=== PATIENT | female | born 1940 | race Caucasian/White ===

== ENCOUNTER 2025-03-11 03:57 | Inpatient (IN) | payer OTHER ==
[~2025-03-11] VITALS: Ht 157.5 cm; Wt 55.1 kg
[2025-03-11] VITALS (7 sets, daily range): BP systolic 136–141; BP diastolic 69–70; PULSE 74–100; RESP 16–20; TEMP 98.4–100.2; O2SAT 92–100
[2025-03-11 05:30] LABS: Basophils # (auto) 0 10 ^3/uL (0-0.2); Basophils % (auto) 0.6 % (0.0-2.0); Eosinophils # (auto) 0 10 ^3/uL (0-0.8); Eosinophils % (auto) 0.4 % (0.0-7.0); Hematocrit 38.7 % (36.0-46.0); Lymphocytes # (auto) 0.9 10 ^3/uL (0.4-5.4); Lymphocytes % (auto) 11.1 % (10.0-50.0); Mean Corpuscular Hemoglobin 32.9 pg (28.0-32.0); Mean Corpuscular Hgb Conc. 33.5 g/dL (32.0-36.0); Monocytes # (auto) 0.9 10 ^3/uL (0-1.3); Monocytes % (auto) 11.2 % (0.0-12.0); Neutrophils # (auto) 6.2 10 ^3/uL (1.6-8.6); Neutrophils % (auto) 76.7 % (37.0-80.0); Platelet Count (auto) 224 10^3/uL (140-450); Red Blood Cells 3.95 10^6/uL (4.0-5.20)
[2025-03-11 05:44] LABS: Chloride 105 mmol/L (98-107); Potassium 4.2 mmol/L (3.5-5.1); Sodium 137 mmol/L (136-145)
[2025-03-11 05:45] LABS: Anion Gap 11 (5-15); Carbon Dioxide 21 mmol/L (20-31)
[2025-03-11 05:50] LABS: BUN/Creatinine Ratio 12.2 (10.0-20.0); Blood Urea Nitrogen 15 mg/dL (9-23); Calcium 11.2 mg/dL (8.7-10.4); Glucose 105 mg/dL (74-106)
[2025-03-11] MEDS: ACETAMINOPHEN 325 MG TAB PO ONE (05:54)
--- NOTE | 2025-03-11 06:07 | DVH ---
EXAM: CT HEAD WITHOUT CONTRAST HISTORY: Severe headache COMPARISON: None TECHNIQUE: Noncontrast axial CT images of the head were performed. Sagittal and coronal reformatted i mages were obtained. This CT exam was performed using 1 or more of the following dose reduction techn iques: Automated exposure control, adjustment of the mA and/or kv according to patient size, or the u se of iterative reconstruction techniques. Radiation Dose: CTDI volume is 51.09 mGy. Dose-length product is 818.82 mGy*cm FINDINGS: There is global brain atrophy. No intracranial hemorrhage, mass, midline shift, hydrocephalus, or phil dence of acute large vessel infarct. There is moderate to severe decreased attenuation in the periven tricular and bicerebral white matter. There are atherosclerotic calcifications the cavernous ICAs and terminal vertebral arteries. There is fluid and/or mucosal thickening in the bilateral ethmoid, bila teral sphenoid, and left maxillary sinuses. There is a left aleksandr bullosa. There may be an old left nasal bone fracture. The bilateral mastoid air cells and middle ear spaces are clear. No cranial frac ture or scalp edema. IMPRESSION: 1. Global brain atrophy and chronic ischemic changes without evidence of acute intracranial process. 2. Paranasal sinus disease.
--- NOTE | 2025-03-11 06:29 | ED.PDOC ---
History of Present Illness HPI Comments 84 y/o F, LOYDA presents to the ED for CC of headache. EMS reports, patient is coming from [facility] where she complained of a generalized headache associated with elevated blood pressure x1day. Patient reports, blood pressure to be reading in the 170s despite taking prescription medications. Patient endo rses, associated symptoms of nausea accompanied by x1 episode of emesis. Patient complains of current 6/10 pain. Upon arrival to the ED, patient's blood pressure read at 168/91. Patient denies chest pain, shortness of breath, or diarrhea. No other associated symptoms, modifiers, recent injuries or sick contacts present at this time. Chief Complaint: Headache Time Seen by MD: 06:20 Reviewed Notes: Nurses Notes, Guest Service Manager Notes, Medications, Allergies Allergies: Coded Allergies: NO KNOWN ALLERGIES (Unverified , 03/11/25) Information Source: Patient, Emergency Med Personnel Mode of Arrival: EMS Severity: Moderate Timing: Days Duration: Since onset Prehospital treatment: None Past Medical History PAST MEDICAL HISTORY: CAD Surgical History: Unknown CHIROPRACTIC ASSISTANT History: Unknown Family History Family History: Unknown Social History Smoker: Non-Smoker Alcohol: Denies ETOH Use Drugs: Denies Drug Use Lives In: Assisted Care Constitutional: denies: chills, diaphoresis, fatigue, fever, malaise, sweats, weakness, others EENTM: denies: blurred vision, double vision, ear bleeding, ear discharge, ear drainage, ear pain, ear ringing, eye pain, eye redness, hearing loss, mouth pain, mouth swelling, nasal discharge, nose bleeding, nose congestion, nose pain, photophobia, tearing, throat pain, throat swelling, voice changes, others Respiratory: denies: cough, hemoptysis, orthopnea, SOB at rest, shortness of breath, SOB with excertion, stridor, wheezing, others Cardiovascular: denies: chest pain, dizzy spells, diaphoresis, Dyspnea on exertion, edema, irregular heart beat, left arm pain, lightheadedness, palpitations, PND, syncope, others Gastrointestinal: reports: nausea, vomiting; denies: abdomen distended, abdo georgie pain, blood streaked bowels, constipated, diarrhea, dysphagia, difficulty swallowing, hematemesis, melena, poor appetite, poor fluid intake, rectal bleeding, rectal pain, others Genitourinary: denies: abnormal vagina bleeding, burning, dyspareunia, dysuria, flank pain, frequency, hematuria, incontinence, pain, , vagina discharge, urgency, others Neurological: reports: headache; denies: dizziness, fainting, left sided numbness, left sided weakness, numbness, paresthesia, pre-existing deficit, right sided numbness, right sided weakness, seizure, speech problems, tingling, tremors, weakness, others Musculoskeletal: denies: back pain, gout, joint pain, joint swelling, muscle pain, muscle stiffness, neck pain, others Integumetry: denies: bruises, change in color, change in hair/nails, dryness, laceration, lesions, lumps, rash, wounds, others Allergic/Immunocompromised: denies: Difficulty Healing, Frequent Infections, Hives, Itching, others Hematologic/Lymphatic: denies: anemia, blood clots, easy bleeding, easy bruising, swollen glands, others Endocrine: denies: excessive hunger, excessive sweating, excessive thirst, excessive urination, flushing, intolerance to cold, intolerance to heat, unexplained weight gain, unexplained weight loss, others Psychiatric: denies: anxiety, bipolar disorder, depression, hopeless, panic disorder, schizophrenia, sleepless, suicidal, others All Other Systems: Reviewed and Negative Physical Exam General Appearance: No Apparent Distress, Normal HEENT: Normal ENT Inspection, Pharynx Normal, TMs Normal Neck: Full Range of Motion, Non-Tender, Normal, Normal Inspection Respiratory: Chest Non-Tender, Lungs Clear, No Accessory Muscle Use, No Respiratory Distress, Normal Breath Sounds Cardiovascular: No Edema, No JVD, No Murmur, No Gallop, Normal Peripheral Pulses, Regular Rate/Rhythm Breast Exam: Deferred Gastrointestinal: No Organomegaly, Non Tender, No Pulsatile Mass, Normal Bowel Sounds, Soft Genitalia: Deferred Pelvic: Deferred Rectal: Deferred Extremities: No calf tenderness, Normal capillary refill, Normal inspection, Normal range of motion, Non-tender, No pedal edema Musculoskeletal : Apperance: Normal Neurologic: Alert, software systems engineer II-XII nml as Tested, No Motor Deficits, Normal Affect, Normal Mood, No Sensory Deficits Cerebellar Function: Normal Reflexes: Normal Skin: Dry, Normal Color, Warm Lymphatic: No Adenopathy Was a procedure done? Was a procedure done?: No Differential Dx Considerations may include: UNCONTROLLED HYPERTENSION, GENERALIZED HEADACHE, MIGRAINE, UTI X-Ray, Labs, Meds, VS Vital Signs Date Time Temp Pulse Resp B/P (MAP) Pulse Ox O2 Delivery O2 Flow Rate FiO2 03/11/25 06:49 156/80 03/11/25 04:15 83 03/11/25 04:07 99.8 80 16 184/72 (109) 100 99.8 Lab Test 03/11/25 05:14 Range/Units White Blood Count 8.0 4.4-10.8 10^3/uL Red Blood Count 3.95 L 4.0-5.20 10^6/uL Hemoglobin 13.0 12.2-16.2 g/dL Hematocrit 38.7 36.0-46.0 % Mean Corpuscular Volume 98.0 80.0-100.0 fL Mean Corpuscular Hemoglobin 32.9 H 28.0-32.0 pg Mean Corpuscular Hemoglobin Concent 33.5 32.0-36.0 g/dL Red Cell Distribution Width 13.0 11.8-14.3 % Platelet Count 224 140-450 10^3/uL Mean Platelet Volume 8.1 6.9-10.8 fL Neutrophils (%) (Auto) 76.7 37.0-80.0 % Lymphocytes (%) (Auto) 11.1 10.0-50.0 % Monocytes (%) (Auto) 11.2 0.0-12.0 % Eosinophils (%) (Auto) 0.4 0.0-7.0 % Basophils (%) (Auto) 0.6 0.0-2.0 % Neutrophils # (Auto) 6.2 1.6-8.6 10 ^3/uL Lymphocytes # (Auto) 0.9 0.4-5.4 10 ^3/uL Monocytes # (Auto) 0.9 0-1.3 10 ^3/uL Eosinophils # (Auto) 0 0-0.8 10 ^3/uL Basophils # (Auto) 0 0-0.2 10 ^3/uL Nucleated Red Blood Cells 0.0 % Sodium Level 137 136-145 mmol/L Potassium Level 4.2 3.5-5.1 mmol/L Chloride Level 105 98-107 mmol/L Carbon Dioxide Level 21 20-31 mmol/L Anion Gap 11 5-15 Blood Urea Nitrogen 15 9-23 mg/dL Creatinine 1.23 H 0.550-1.02 mg/dL Glomerular Filtration Rate Calc 44 >90 mL/min BUN/Creatinine Ratio 12.2 10.0-20.0 Serum Glucose 105 74-106 mg/dL Calcium Level 11.2 H 8.7-10.4 mg/dL Current Medications Medications (Trade) Dose Ordered Sig/Mehrdad Route Start Time Stop Time Status Last Admin Hydralazine HCl (Apresoline Injection) 10 mg ONCE ONCE IV 03/11/25 06:30 03/11/25 06:35 DC 03/11/25 06:49 Time of 1ST Reevaluation: 06:50 Reevaluation 1ST: Unchanged Patient Education/Counseling: Diagnosis, Treatment Family Education/Counseling: No Family Present Departure 1 Departure Time of Disposition: 07:34 (Patient presented with hypertension and symptoms concerning for hypertensive emergency. Patient is receiving iv blood pressure medications requiring intensive monitoring. Data: 1. I ordered and reviewed the result of at least 3 labs including a CBC, BMP, and Urinalysis. 2. I independently interpreted the following tests: CT Brain: Which appears benign. EKG which is Normal Sinus RhythmRisk:This patient has a high risk of morbidity due to further diagnostic testing or treatment and may suffer from an acute cardiac disorder. Workup reveals hypertensive emergency and patient should be admitted for further workup. and possible expert consultation. ) Impression: Primary Impression: Hypertensive emergency Additional Impression: Migraine Qualified Codes: G43.109 - Migraine with aura, not intractable, without sta tus migrainosus Disposition: ADMITTED INPATIENT Admit to: Med Surg Condition: Serious Critical Care Note Critical Care Time?: Yes Critical care comment: Hypertensive emergency Authorized and Performed by: Jose Arreaga MD Total critical care time: Approximately 37 minutes Due to a high probability of clinically significant, life threatening deterioration, the patient required my highest level of preparedness to intervene emergently and I personally spent this critical care time directly and personally managing the patient. This critical care time included obtaining a history; examining the patient; pulse oximetry; ordering and review of studies; arranging urgent treatment with development of a management plan; evaluation of patient's response to treatment; frequent reassessment; and, discussions with other providers. This critical care time was performed to assess and manage the high probability of imminent, life-threatening deterioration that could result in multi-organ failure. It was exclusive of separately billable procedures and treating other patients and teaching time. Please see my other sections and the rest of the note for further information on patient assessment and treatment. Stability Stability form required: No Heart Score Heart Score: Heart Score Response (Comments) Value History N/A 0 EKG N/A 0 Age N/A 0 Risk Factors N/A 0 Troponin N/A 0 Total 0 I personally scribed for JOSE ARREAGA MD ([email or web address]) on 03/11/25 at 06:29. Electronically submitted by Paulette Leyva ([email or web address]). JOSE ARREAGA MD March 11, 2025 06:29
[2025-03-11] MEDS: hydrALAZINE HCL 20 MG/ML VL IV ONE (06:49)
--- NOTE | 2025-03-11 06:59 | DVH ---
EXAM: XR Chest, 1 View CLINICAL INDICATION: sob TECHNIQUE: Frontal view of the chest. COMPARISON: None FINDINGS: LUNGS AND PLEURAL SPACES: Unremarkable. No consolidation. No pneumothorax. HEART: Unremarkable. No cardiomegaly. MEDIASTINUM: Unremarkable. Normal mediastinal contour. BONES/JOINTS: Unremarkable. No acute fracture. OTHER FINDINGS: . IMPRESSION: No acute cardiopulmonary process.
[2025-03-11] MEDS ORDERED: ATEN25TA PO (07:51)
[2025-03-11] MEDS ORDERED: BECL80AE11 PO (07:51)
[2025-03-11] MEDS ORDERED: SIMV20TA20 PO (07:51)
[2025-03-11] MEDS ORDERED: LISI10TA34 PO (07:51)
[2025-03-11] MEDS ORDERED: MORPHINE SULFATE INJ 2 MG/ml SYRG IV PRN (08:45)
[2025-03-11] MEDS ORDERED: ONDANSETRON HCL 4 MG/2 ML VIAL IV ONE (08:45)
[2025-03-11] MEDS ORDERED: NITROGLYCERIN 0.4 MG SL TAB SL PRN (08:45)
[2025-03-11] MEDS: ONDANSETRON HCL 4 MG/2 ML VIAL ONE (08:50)
[2025-03-11] MEDS ORDERED: ONDANSETRON HCL 4 MG/2 ML VIAL IV PRN (09:00)
[2025-03-11] MEDS: ONDANSETRON HCL 4 MG/2 ML VIAL IV ONE (09:09)
--- NOTE | 2025-03-11 09:09 | DVHHP2 ---
History of Present Illness Reason for Visit: Headache and nausea and vomiting History of Present Illness 84-year-old female with a history of hypertension, history of bronchiectasis, dyslipidemia, who [facility] was sent here due to high blood pressure nausea and vomiting and headache Her blood pressure on admission here was 184/72 and temperature 99.8� She is still having nausea and vomiting No abdominal pain, no hematemesis She also had diarrhea yesterday The headache is frontal Cardiovascular: HTN Review of Systems Constitutional: Yes: Weakness Gastrointestinal: Nausea, Vomiting, Diarrhea Neurological: Weakness Allergies: Coded Allergies: NO KNOWN ALLERGIES (Unverified , 03/11/25) Medications Current Medications Medications Dose Ordered Sig/Mehrdad Route Start Time Stop Time Status Last Admin Dose Admin Nitroglycerin 0.4 mg Q5MINP PRN SL 03/11/25 08:45 UNV Morphine Sulfate 2 mg Q30M PRN IV 03/11/25 08:45 UNV Exam Vital Signs Vital Signs Date Time Temp Pulse Resp B/P (MAP) Pulse Ox O2 Delivery O2 Flow Rate FiO2 03/11/25 06:49 156/80 03/11/25 04:15 83 03/11/25 04:07 99.8 16 100 99.8 General Appearance: Alert, Oriented X3, Cooperative, moderate distress HEENT: Atraumatic, PERRLA, EOMI, Mucous membr. moist/pink Respiratory: Clear to auscultation, Normal air movement Cardiovascular: Regular rate, Normal S1, Normal S2, No murmurs Abdominal: Normal bowel sounds, Soft, No tenderness, No hepatospenomegaly, No masses Extremities: No clubbing, No cyanosis, No edema Skin: No rashes Neuro: Normal speech Labs/Xrays Labs Test 03/11/25 05:14 Range/Units White Blood Count 8.0 4.4-10.8 10^3/uL Red Blood Count 3.95 L 4.0-5.20 10^6/uL Hemoglobin 13.0 12.2-16.2 g/dL Hematocrit 38.7 36.0-46.0 % Mean Corpuscular Volume 98.0 80.0-100.0 fL Mean Corpuscular Hemoglobin 32.9 H 28.0-32.0 pg Mean Corpuscular Hemoglobin Concent 33.5 32.0-36.0 g/dL Red Cell Distribution Width 13.0 11.8-14.3 % Platelet Count 224 140-450 10^3/uL Mean Platelet Volume 8.1 6.9-10.8 fL Neutrophils (%) (Auto) 76.7 37.0-80.0 % Lymphocytes (%) (Auto) 11.1 10.0-50.0 % Monocytes (%) (Auto) 11.2 0.0-12.0 % Eosinophils (%) (Auto) 0.4 0.0-7.0 % Basophils (%) (Auto) 0.6 0.0-2.0 % Neutrophils # (Auto) 6.2 1.6-8.6 10 ^3/uL Lymphocytes # (Auto) 0.9 0.4-5.4 10 ^3/uL Monocytes # (Auto) 0.9 0-1.3 10 ^3/uL Eosinophils # (Auto) 0 0-0.8 10 ^3/uL Basophils # (Auto) 0 0-0.2 10 ^3/uL Nucleated Red Blood Cells 0.0 % Sodium Level 137 136-145 mmol/L Potassium Level 4.2 3.5-5.1 mmol/L Chloride Level 105 98-107 mmol/L Carbon Dioxide Level 21 20-31 mmol/L Anion Gap 11 5-15 Blood Urea Nitrogen 15 9-23 mg/dL Creatinine 1.23 H 0.550-1.02 mg/dL Glomerular Filtration Rate Calc 44 >90 mL/min BUN/Creatinine Ratio 12.2 10.0-20.0 Serum Glucose 105 74-106 mg/dL Calcium Level 11.2 H 8.7-10.4 mg/dL Assessment/Plan Assessment/Plan Intractable nausea and vomiting Headache Hypertension Acute sinusitis History of bronchiectasis Mixed hyperlipidemia Plan Admit to telemetry Clear liquid diet Start IV Levaquin Start the home medications lisinopril 10 mg daily and atenolol 25 mg daily Hydralazine IV p.r.n. Zofran p.r.n. Protonix IV Tylenol for headache Monitor closely The rest of the management will depend on the hospital course Full code Plan discussed with: Patient My Orders Orders - MARISELA GODINEZ MD Procedure Category Date Status Time Ondansetron Hcl PHA 03/11/25 Logged (Germaine) 09:00 Admit ADMIT 03/11/25 Transmitted 08:32 Nitroglycerin PHA 03/11/25 Logged Sublingual (Ntrostat 08:45 Morphine Sulfate PHA 03/11/25 Logged Injection 08:45 Stat Ekg For Chest BRITTANY 03/11/25 In Process Pain 08:32 Notify Of Changes BRITTANY 03/11/25 In Process From Base 08:32 Hand Assembler For Puller Over For BRITTANY 03/11/25 In Process 24 Hours 08:32 Emergency Dysrhythmia BRITTANY 03/11/25 In Process Protocol 08:32 Rhythm Strips Once BRITTANY 03/11/25 In Process Every Shift 08:32 Oxygen By Nasal RT 03/11/25 Transmitted Cannula 08:32 Ondansetron Hcl PHA 03/11/25 Logged (Zofran) 08:45 Clear Liq Diet DIET 03/11/25 Transmitted Breakfast Ondansetron Hcl PHA 03/11/25 Transmitted (Zofran) 09:00 Pantoprazole PHA 03/11/25 Transmitted (Protonix) 10:00 Levofloxacin Levaquin PHA 03/11/25 Transmitted 10:00 Hydralazine Injection PHA 03/11/25 Verified (Apresoline Inject 09:00 Date of Service: March 11, 2025 Billing Provider: MARISELA GODINEZ MD Common Visit Codes: NOT BILLABLE MARISELA GODINEZ MD March 11, 2025 09:09
--- NOTE | 2025-03-11 12:23 | ECG ---
[facility] Test Date: 2025-03-11 Test Time: 04:15:16 Pat Name: HIRA POP Department: ED Room: 0297T Gender: F Cook Vegetable: kyung : 1940 Requested By: JOSE BOOKER Order Number: [id number] Reading MD: Addy Wiley Measurements Intervals [place] Rate: 83 P: 74 DC: 153 QRS: 63 QRSD: 90 T: 54 QT: 360 QTc: 423 Interpretive Statements Sinus rhythm Left atrial enlargement Electronically Signed On 03-13-2025 21:18:34 PDT by Addy Wiley Please click the below link to view image of tracing.
[2025-03-11] MEDS: LISINOPRIL 5 MG TAB PO SCH (13:28)
[2025-03-11] MEDS: ATENOLOL 25 MG TAB PO SCH (13:34)
[2025-03-11] MEDS: PANTOPRAZOLE 40 MG/10 ML VIAL INJ IV SCH (13:39)
[2025-03-11] MEDS: levoFLOXacin 500MG 100 ML IV SCH (13:54)
[2025-03-11 14:37] LABS: Urine Bacteria None Seen /hpf (None Seen)
[2025-03-11 14:44] LABS: Urine Blood Negative /uL (Negative); Urine Budding Yeast FEW /hpf (None Seen); Urine Clarity Turbid (Clear); Urine Hyaline Cast FEW /lpf (0 - 2); Urine Protein, UAD 1+ (Negative); Urine Specific Gravity 1.014 (1.001-1.035); Urine Squamous Epithelial Cell FEW /hpf (<5); Urine Urobilinogen Normal (Negative); Urine WBC 369 /HPF (0-5); Urine WBC Clumps PRESENT /hpf (None Seen)
[2025-03-11 14:45] LABS: Urine Color STRAW (Yellow)
[2025-03-11] MEDS: ACETAMINOPHEN 325 MG TAB PO PRN (17:53)
[2025-03-11] MEDS: ATORVASTATIN 20 MG TAB PO SCH (21:03)
[2025-03-11] MEDS: BUDESONIDE (INHALATION) 0.5 MG/2 ML NEB NEB SCH (21:42)
[2025-03-12] VITALS (12 sets, daily range): BP systolic 102–154; BP diastolic 41–87; PULSE 74–95; RESP 16–19; TEMP 36.8; O2SAT 92–98
[2025-03-12] MEDS: hydrALAZINE HCL 20 MG/ML VL IV PRN (05:26)
[2025-03-12] MEDS: levoFLOXacin 250MG 50 ML IV SCH (09:43)
[2025-03-12 11:35] LABS: COVID19 ANTIGEN SOFIA FIA NEGATIVE (NEGATIVE); Rapid Influenza A Negative (Negative); Rapid Influenza B Negative (Negative)
[2025-03-12] MEDS ORDERED: LEVO500T91 PO (18:35)
--- NOTE | 2025-03-16 12:42 | DVHDS2 ---
Discharge Summary Date of Admission March 11, 2025 at 08:32 Date of Discharge: March 12, 2025 Labs/Diagnostic Data: Laboratory Results Test 03/12/25 10:35 03/11/25 14:25 03/11/25 05:14 Influenza Type A Antigen Negative (Negative) Influenza Type B Antigen Negative (Negative) SARS-CoV-2 Antigen (Rapid) Negative (NEGATIVE) Urine Color Straw (Yellow) Urine Clarity Turbid (Clear) Urine pH 6.0 (5.0-9.0) Urine Specific [place] 1.014 (1.001-1.035) Urine Protein 1+ (Negative) Urine Ketones 1+ (Negative) Urine Blood Negative /uL (Negative) Urine Nitrite Negative (Negative) Urine Bilirubin Negative (Negative) Urine Urobilinogen Normal mg/dL (Negative) Urine Leukocyte Esterase 3+ /uL (Negative) Urine RBC 4 /hpf (0 - 4) Urine WBC Clumps Present /hpf (None Seen) Urine Microscopic WBC 369 /HPF (0-5) Urine Squamous Epithelial Cells Few /hpf (<5) Urine Bacteria None seen /hpf (None Seen) Urine Hyaline Casts Few /lpf (0 - 2) Urine Yeast (Budding) Few /hpf (None Seen) Urine Glucose Normal mg/dL (Normal) White Blood Count 8.0 10^3/uL (4.4-10.8) Red Blood Count 3.95 10^6/uL (4.0-5.20) Hemoglobin 13.0 g/dL (12.2-16.2) Hematocrit 38.7 % (36.0-46.0) Mean Corpuscular Volume 98.0 fL (80.0-100.0) Mean Corpuscular Hemoglobin 32.9 pg (28.0-32.0) Mean Corpuscular Hemoglobin Concent 33.5 g/dL (32.0-36.0) Red Cell Distribution Width 13.0 % (11.8-14.3) Platelet Count 224 10^3/uL (140-450) Mean Platelet Volume 8.1 fL (6.9-10.8) Neutrophils (%) (Auto) 76.7 % (37.0-80.0) Lymphocytes (%) (Auto) 11.1 % (10.0-50.0) Monocytes (%) (Auto) 11.2 % (0.0-12.0) Eosinophils (%) (Auto) 0.4 % (0.0-7.0) Basophils (%) (Auto) 0.6 % (0.0-2.0) Neutrophils # (Auto) 6.2 10 ^3/uL (1.6-8.6) Lymphocytes # (Auto) 0.9 10 ^3/uL (0.4-5.4) Monocytes # (Auto) 0.9 10 ^3/uL (0-1.3) Eosinophils # (Auto) 0 10 ^3/uL (0-0.8) Basophils # (Auto) 0 10 ^3/uL (0-0.2) Nucleated Red Blood Cells 0.0 % Sodium Level 137 mmol/L (136-145) Potassium Level 4.2 mmol/L (3.5-5.1) Chloride Level 105 mmol/L (98-107) Carbon Dioxide Level 21 mmol/L (20-31) Anion Gap 11 (5-15) Blood Urea Nitrogen 15 mg/dL (9-23) Creatinine 1.23 mg/dL (0.550-1.02) Glomerular Filtration Rate Calc 44 mL/min (>90) BUN/Creatinine Ratio 12.2 (10.0-20.0) Serum Glucose 105 mg/dL (74-106) Calcium Level 11.2 mg/dL (8.7-10.4) Other Laboratory Tests 03/11/25 05:14 Brief Hx & Hospital Course: Discharge diagnoses: Intractable nausea and vomiting Headache Hypertension Acute sinusitis History of bronchiectasis Mixed hyperlipidemia The patient is an 84-year-old female who was admitted to the hospital due to headache and nausea and vomiting nose diagnosed with acute sinusitis She had fever She was given IV antibiotics overnight Overnight she did well and therefore she was discharged home on levofloxacin for 10 days and to follow up with the primary care physician as soon as possible Condition at Discharge: Stable Final Diagnosis/Problems List Acute sinusitis Discharge Disposition: Home SNF Discharge Will this Physician continue t: No Discharge Instruct/Medications Diet: Cardiac 2g Na,low cholest Activity: Light activity Follow Up/Referral: PCP [facility] Medications: Levaquin 500 mg qd x 10 days Discharge Statement: "Patient was advised to return to the ER or call 911 if any headaches, dizziness, shortness of breath, chest pain, abdominal pain, bleeding, fevers, or worsening of medical condition. Patient was counseled about treatment plan, medications, possible side effects, patient�verbalized understanding. All questions were answered to the best of my ability. This discharge took greater then 30 minutes in planning, reviewing documentation, counseling the patient, and discussing with other team members." ASSESSMENT ASSESSMENT Assessment Acute sinusitis Date of Service: March 12, 2025 Billing Provider: MARISELA GODINEZ MD Common Visit Codes: NOT BILLABLE MARISELA GODINEZ MD March 16, 2025 12:42
== END 2025-03-12 20:00 | disposition home or self-care (01) | DRG 305 ==
LOC: EDBD 03:57 → ER 03:57 → OVERFLOW 08:32 → TELE-WESTW 17:35
PROVIDERS: ADMIT Internal Medicine Geriatric Medicine; ATTEND Internal Medicine Geriatric Medicine
DX: I16.0 Hypertensive urgency (principal); J01.90 Acute sinusitis, unspecified; G43.909 Migraine, unspecified, not intractable, without status migrainosus; I10 Essential (primary) hypertension; Z20.822 Contact with and (suspected) exposure to COVID-19; E78.2 Mixed hyperlipidemia; I25.10 Atherosclerotic heart disease of native coronary artery without angina pectoris; Z79.899 Other long term (current) drug therapy
CPT/HCPCS: 36415; 70450; 71045; 80048; 81001; 85025; 87426; 87804; 93005; 94640; 99291; G0378; J1956; J2405; J2470

== ENCOUNTER 2025-09-20 19:59 | Emergency (ER) | payer OTHER ==
[~2025-09-20] VITALS: Ht 157.5 cm; Wt 54.5 kg
[~2025-09-20 19:59] MED LIST: ATEN25TA PO; BECL80AE11 PO; LEVO500T91 PO; LISI10TA34 PO; SIMV20TA20 PO
--- NOTE | 2025-09-20 21:21 | DVH ---
INDICATION: HTN TECHNIQUE: Frontal view of the chest. COMPARISON: XY CHEST PORTABLE on DOS: 03/11/25 FINDINGS/IMPRESSION: The lung apices are partially excluded from field of view. The lungs are clear. The cardiomediastinal silhouette is unremarkable. No pleural effusion or pneumothorax. No acute osseous abnormality. Surgical clips project over the right lower thorax.
[2025-09-20 21:56] LABS: Hematocrit 35.4 % (36.0-46.0); Hemoglobin 12.0 g/dL (12.2-16.2); Mean Corpuscular Hemoglobin 32.9 pg (28.0-32.0); Mean Corpuscular Volume 96.9 fL (80.0-100.0); Nucleated Red Blood Cells % 0.0 %
[2025-09-20 22:03] LABS: Alanine Aminotransferase 19 U/L (7-40); Albumin 4.5 g/dL (3.2-4.8); Alkaline Phosphatase 101 U/L (46-116); Anion Gap 10 (5-15); BUN/Creatinine Ratio 24.3 (10.0-20.0); Bilirubin, Total 0.3 mg/dL (0.2-1.0); Blood Urea Nitrogen 33 mg/dL (9-23); Calcium 10.4 mg/dL (8.7-10.4); Carbon Dioxide 24 mmol/L (20-31); Chloride 104 mmol/L (98-107); Glucose 104 mg/dL (74-106); Potassium 4.5 mmol/L (3.5-5.1); Sodium 138 mmol/L (136-145); Total Protein 7.0 g/dL (5.7-8.2)
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
[2025-09-20 23:34] VITALS: BP 143/78; PULSE 60; RESP 17; TEMP 98.3; O2SAT 95
--- NOTE | 2025-09-23 13:19 | ECG ---
[facility] Test Date: 2025-09-20 Test Time: 21:48:41 Pat Name: HIRA POP Department: ED Room: Gender: F Thrill Performer: : 1940 Requested By: TAVIA CHAPMAN Order Number: [id number] Reading MD: Addy Wiley Measurements Intervals [place] Rate: 65 P: 73 SC: 167 QRS: 54 QRSD: 95 T: 57 QT: 399 QTc: 415 Interpretive Statements Sinus rhythm Left atrial enlargement Baseline wander in lead(s) V6 Electronically Signed On 09-23-2025 17:54:26 PST by Addy Wiley Please click the below link to view image of tracing.
== END 2025-09-20 23:38 | disposition home or self-care (01) ==
LOC: ER 19:59 → EDBD 19:59 → ER 23:34
DX: I16.0 Hypertensive urgency (principal); I25.10 Atherosclerotic heart disease of native coronary artery without angina pectoris; I10 Essential (primary) hypertension; Z79.899 Other long term (current) drug therapy; Z88.0 Allergy status to penicillin; Z79.51 Long term (current) use of inhaled steroids; Z86.79 Personal history of other diseases of the circulatory system
CPT/HCPCS: 36415; 71045; 80053; 84484; 85025; 93005

== ENCOUNTER 2025-09-22 19:13 | Inpatient (IN) | payer OTHER ==
[~2025-09-22] VITALS: Ht 162.6 cm; Wt 55.5 kg
[~2025-09-22 19:13] MED LIST changes: +ACETAMINOPHEN 325 MG TAB PO PRN
--- NOTE | 2025-09-22 19:42 | ED.PDOC ---
Kim. trauma (HPI) HPI Comments This is a 84 year old female TAMRAA presenting to the ED with chief complaint of fall injury. Patient reports that she had accidentally slipped on a ramp, falling down face first. Patient relays that she had hit the right side of her face where it is now bruised and swollen along with injuring her right shoulder trying to break her fall. Patient denies any N/V, LOC, dizziness, headache, neck pain, or back pain. Chief Complaint: Fall Injury Time Seen by MD: 19:38 Reviewed notes: Nurses Notes, Accounts Receivable Collector Notes, Medications, Allergies Allergies: Coded Allergies: Penicillins (Verified Allergy, Unknown, 03/11/25) Home Meds Active Scripts Levofloxacin Hemihydrate (LEVOFLOXACIN) 500 Mg Tab, 1 TAB PO DAILY, #10 TAB Prov:MARISELA GODINEZ MD 03/12/25 Reported Medications Atenolol (Atenolol) 25 Mg Tab, 1 TAB PO DAILY 03/11/25 Simvastatin (Simvastatin) 20 Mg Tab, 1 TAB PO HS 03/11/25 Beclomethasone Dipropionate (Qvar Redihaler) 80 Mcg/Act Aer, 2 PUFF PO BID 03/11/25 Lisinopril (Lisinopril) 10 Mg Tab, 1 TAB PO DAILY 03/11/25 Information Source: Patient, Emergency Med Personnel Mode of Arrival: EMS Severity: Moderate Timing: Hours Duration: Since onset Prehospital treatment: None Location: Face, (R) Shoulder Mechanism: Fall Past Medical History PAST MEDICAL HISTORY: CAD Surgical History: Unknown, Denies all surgeries 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 Family History Family History: Reviewed,noncontributory to illness Social History Smoker: Non-Smoker Alcohol: Denies ETOH Use Drugs: Denies Drug Use Lives In: Assisted Care Constitutional: denies: chills, diaphoresis, fatigue, fever, malaise, sweats, weakness, others EENTM: denies: blurred vision, double vision, ear bleeding, ear discharge, ear drainage, ear pain, ear ringing, eye pain, eye redness, hearing loss, mouth pain, mouth swelling, nasal discharge, nose bleeding, nose congestion, nose pain, photophobia, tearing, throat pain, throat swelling, voice changes, others Respiratory: denies: cough, hemoptysis, orthopnea, SOB at rest, shortness of breath, SOB with excertion, stridor, wheezing, others Cardiovascular: denies: chest pain, dizzy spells, diaphoresis, Dyspnea on exertion, edema, irregular heart beat, left arm pain, lightheadedness, palpitations, PND, syncope, others Gastrointestinal: denies: abdomen distended, abdominal pain, blood streaked bowels, constipated, diarrhea, dysphagia, difficulty swallowing, hematemesis, melena, nausea, poor appetite, poor fluid intake, rectal bleeding, rectal pain, vomiting, others Genitourinary: denies: abnormal vagina bleeding, burning, dyspareunia, dysuria, flank pain, frequency, hematuria, incontinence, pain, , vagina discharge, urgency, others Neurological: denies: dizziness, fainting, headache, left sided numbness, left sided weakness, numbness, paresthesia, pre-existing deficit, right sided numbness, right sided weakness, seizure, speech problems, tingling, tremors, weakness, others Musculoskeletal: reports: others (Rt shoulder pain); denies: back pain, gout, joint pain, joint swelling, muscle pain, muscle stiffness, neck pain Integumetry: reports: bruises (rt cheek and eyebrow); denies: change in color, change in hair/nails, dryness, laceration, lesions, lumps, rash, wounds, others Allergic/Immunocompromised: denies: Difficulty Healing, Frequent Infections, Hives, Itching, others Hematologic/Lymphatic: denies: anemia, blood clots, easy bleeding, easy bruising, swollen glands, others Endocrine: denies: excessive hunger, excessive sweating, excessive thirst, excessive urination, flushing, intolerance to cold, intolerance to heat, unexplained weight gain, unexplained weight loss, others Psychiatric: denies: anxiety, bipolar disorder, depression, hopeless, panic disorder, schizophrenia, sleepless, suicidal, others All Other Systems: Reviewed and Negative Physical Exam General Appearance: No Apparent Distress, Normal HEENT: Normal ENT Inspection, Pharynx Normal, TMs Normal Neck: Full Range of Motion, Non-Tender, Normal, Normal Inspection Respiratory: Chest Non-Tender, Lungs Clear, No Accessory Muscle Use, No Respiratory Distress, Normal Breath Sounds Cardiovascular: No Edema, No JVD, No Murmur, No Gallop, Normal Peripheral Pulses, Regular Rate/Rhythm Breast Exam: Deferred Gastrointestinal: No Organomegaly, Non Tender, No Pulsatile Mass, Normal Bowel Sounds, Soft Genitalia: Deferred Pelvic: Deferred Rectal: Deferred Extremities: No calf tenderness, Normal capillary refill, Normal inspection, Normal range of motion, Non-tender, No pedal edema Musculoskeletal : Location: Right Extremity Location: Shoulder Apperance: Normal, Tenderness (Tenderness over right deltoid with no obvious deformity.) Neurologic: Alert, top trimmer II-XII nml as Tested, No Motor Deficits, Normal Affect, Normal Mood, No Sensory Deficits Cerebellar Function: Normal Reflexes: Normal Skin: Dry, Normal Color, Warm, Other (Hematoma over right cheek and right eyebrow.) Lymphatic: No Adenopathy Was a procedure done? Was a procedure done?: No Differential Diagnosis Multiple Trauma: Fractures, Abrasions, Contusion, Hematoma X-Ray, Labs, Meds, VS Vital Signs Date Time Temp Pulse Resp B/P (MAP) Pulse Ox O2 Delivery O2 Flow Rate FiO2 09/22/25 19:33 97.6 72 19 144/77 100 97.6 [place] [address] Ph: [phone] DIAGNOSTIC IMAGING Diagnostic Imaging Report : [id number] Signed PATIENT: STALIN POPT: [id number] UNIT: [id number] : 1940 LOC: ER ROOM / BED: / AGE / SEX: 84 / F ADM STATUS: REG ER SERVICE 42 ORDERING PHYSICIAN: EZEKIEL GARG PROCEDURE(s): RSHD2 - R SHOULDER 2+ VIEW XRAY REASON: fall ORDER NUMBER(s): [id number], ACCESSION NUMBER(s): [id number] CLINICAL INDICATION: fall TECHNIQUE: 3 radiographic views of the RIGHT SHOULDER were obtained. Comparison: None FINDINGS/IMPRESSION: Fracture of the greater tuberosity of the proximal right humerus No dislocation. ATED BY: NKECHI EVANS Jr., DO DICTATED DATE/TIME: 09/22/252055 SIGNED BY: NKECHI EVANS Jr., SIGNED DATE/TIME: 09/22/252055 CC: X-Ray, Labs, Meds, VS Comment Patient refused head CT Patient has a fracture of the right humeral head Patient states she lives at home alone, there was concerns for either be able to care for herself Orthopedic consult placed Images Reviewed?: Images reviewed and evaluated by me Time of 1ST Reevaluation: 20:38 Reevaluation 1ST: Unchanged Patient Education/Counseling: Diagnosis, Treatment Family Education/Counseling: No Family Present Departure 1 Departure Time of Disposition: 21:07 Impression: Primary Impression: Right humeral fracture Qualified Codes: S42.291A - Other displaced fracture of upper end of right humerus, initial encounter for closed fracture Disposition: ADMITTED INPATIENT Condition: Stable Discharged With: Self Critical Care Note Critical Care Time?: No Stability Stability form required: No Heart Score Heart Score: Heart Score Response (Comments) Value History N/A 0 EKG N/A 0 Age N/A 0 Risk Factors N/A 0 Troponin N/A 0 Total 0 I personally scribed for EZEKIEL GARG ([facility]) on 09/22/25 at 19:42. Electronically submitted by Franky Starr ([email or web address]). I personally scribed for EZEKIEL GARG ([email or web address]) on 09/22/25 at 21:02. Electronically submitted by Franky Starr ([email or web address]). EZEKIEL GARG Sep 22, 2025 19:42
--- NOTE | 2025-09-22 20:58 | DVH ---
CLINICAL INDICATION: fall TECHNIQUE: 3 radiographic views of the RIGHT SHOULDER were obtained. Comparison: None FINDINGS/IMPRESSION: Fracture of the greater tuberosity of the proximal right humerus No dislocation.
[2025-09-22] MEDS: LISINOPRIL 20 MG TAB PO ONE (21:47)
[2025-09-22] MEDS: ACETAMINOPHEN 325 MG TAB PO ONE (21:49)
[2025-09-22] MEDS: ATENOLOL 25 MG TAB PO ONE (21:51)
[2025-09-22] MEDS ORDERED: ONDANSETRON HCL 4 MG/2 ML VIAL IV PRN (22:15)
[2025-09-22] MEDS ORDERED: MORPHINE SULFATE INJ 2 MG/ml SYRG IV PRN (22:15)
[2025-09-22 23:02] LABS: INR 0.98 (0.9-1.15); Partial Thromboplastin Time 27.3 SEC (24.5-34.5); Prothrombin Time 10.4 sec (9.3-11.8)
[2025-09-22 23:10] VITALS: RESP 18; O2SAT 95
[2025-09-23] MEDS: HYDROcodone-ACET 5/325MG TAB PO PRN (02:44)
[2025-09-23 05:37] LABS: Hematocrit 32.5 % (36.0-46.0); Hemoglobin 11.3 g/dL (12.2-16.2); Mean Corpuscular Hemoglobin 33.6 pg (28.0-32.0); Mean Corpuscular Volume 96.6 fL (80.0-100.0); Nucleated Red Blood Cells % 0.1 %
[2025-09-23 05:47] LABS: Chloride 106 mmol/L (98-107); Potassium 4.5 mmol/L (3.5-5.1); Sodium 140 mmol/L (136-145)
[2025-09-23 05:48] LABS: Anion Gap 9 (5-15); Calcium 10.2 mg/dL (8.7-10.4); Carbon Dioxide 25 mmol/L (20-31)
[2025-09-23 05:53] LABS: BUN/Creatinine Ratio 22.1 (10.0-20.0)
[2025-09-23 06:14] LABS: Blood Urea Nitrogen 30 mg/dL (9-23); Glucose 117 mg/dL (74-106)
[2025-09-23 07:25] VITALS: PULSE 51; RESP 15; O2SAT 96
--- NOTE | 2025-09-23 08:18 | DVHINCON2 ---
Consult Note Consult Consult Note Reason for Consult: Right proximal humerus fracture after ground-level fall. History of Present Illness: The patient is a female who presents after a ground-level fall earlier today. She was evaluated in the Emergency Department where X-rays were obtained. On interview, patient reports right shoulder pain with limited ability to move the right upper extremity since the fall. She also has facial ecchymosis, likely from direct impact during the incident. The patient denies loss of consciousness, dizziness, or head injury symptoms. No numbness or tingling in the right arm is reported. Pain is worsened with any attempted motion of the shoulder. Patient is able to move her right UE fingers and Elbow and wrist without difficulty. Physical Examination: General: Alert, oriented, in mild discomfort due to shoulder pain. Head/Face: Facial ecchymosis noted; no lacerations, no active bleeding. No focal neurologic deficits. Right Upper Extremity: Tenderness to palpation over proximal humerus Pain with attempted ROM of shoulder No gross deformity of shoulder Skin intact; no open wounds Motor: Intact distallyfingers, wrist, hand movements intact Sensation: Intact to light touch in all dermatomes Radial pulse 2+, warm and well-perfused No elbow or wrist tenderness Imaging: Right Shoulder X-ray: Proximal humerus fracture involving the greater tuberosity No dislocation No additional fractures identified Assessment: 1. Right proximal humerus fracturegreater tuberosity 2. Facial ecchymosis secondary to fall 3. Ground-level fall 4. Neurovascularly intact right upper extremity Plan: 1. Non-operative management recommended at this time, given fracture pattern and alignment. 2. Shoulder immobilizer placed for comfort and stabilization. 3. Nonweight bearing (NWB) right upper extremity. 4. Ice to right shoulder and face for 2448 hours. 5. Multimodal pain control per ED 6. Follow-up with Orthopedic Clinic in 1 week for repeat X-ray and examination. 7. Return precautions discussed, including severe pain, numbness, tingling, or swelling. 8. All questions answered. 9. Patient agreeable with plan. Plan discussed with: Patient, Other (bedside nurse) Visit Coding Surgery Date of Service if different f: Sep 23, 2025 Billing Provider: SHIVA KLEIN Surgery Visit Codes: 47130 - INP CONSULT <55 MIN SHIVA KLEIN Sep 23, 2025 08:18
[2025-09-23] MEDS: LISINOPRIL 5 MG TAB PO SCH (10:00)
[2025-09-23] MEDS: ATENOLOL 25 MG TAB PO SCH (10:22)
--- NOTE | 2025-09-23 12:57 | DVHPN2 ---
Reviewed: Care Plan, H&P, Labs, Medications, Previous Orders, Radiology Changes from previous H/P or p: No Changes Objective Vitals Vital Signs Date Time Temp Pulse Resp B/P (MAP) Pulse Ox O2 Delivery O2 Flow Rate FiO2 09/23/25 12:00 60 15 172/2 (58) 96 09/23/25 08:50 97.9 97.9 09/23/25 07:25 Room Air* 0 21 Medications Current Medications Medications Dose Ordered Sig/Mehrdad Route Start Time Stop Time Status Last Admin Dose Admin Lisinopril 10 mg DAILY PO 09/23/25 10:00 Atorvastatin Calcium 20 mg HS PO 09/23/25 22:00 Atenolol 25 mg DAILY PO 09/23/25 10:00 09/23/25 10:22 25 MG Acetaminophen/ Hydrocodone Bitart 1 tab Q4HP PRN PO 09/22/25 22:15 09/23/25 02:44 1 TAB Ondansetron HCl 4 mg Q4HP PRN IV 09/22/25 22:15 Acetaminophen 650 mg Q6HP PRN PO 09/22/25 04:00 Morphine Sulfate 2 mg Q6HPRN PRN IV 09/22/25 22:15 Laboratory Results Laboratory Tests 09/23/25 05:14 Chemistry Test 09/23/25 05:14 Calcium Level 10.2 mg/dL (8.7-10.4) Coagulation Test 09/22/25 22:29 Prothrombin Time 10.4 sec (9.3-11.8) Prothrombin Time INR 0.98 (0.9-1.15) Activated Partial Thromboplast Time 27.3 SEC (24.5-34.5) Labs and/or images reviewed: Labs reviewed by me, Image(s) reviewed by me Assessment/Plan Assessment/Plan Fracture right proximal humerus greater tuberosity: Consult by Orthopedic appreciated, shoulder immobilizer pain management Ground level fall Facial ecchymosis secondary to fall Time spent 45 minutes Advanced care time 20 minutes Patient is full code Plan discussed with: Patient Date of Service: Sep 23, 2025 Billing Provider: SALAS FITZPATRICK MD Common Visit Codes: 00313-[id number] INP/OBS CARE(HIGH) Secondary Visit Codes: [id number] CARE PLAN 30 MINUTES SALAS FITZPATRICK MD Sep 23, 2025 12:57
[2025-09-23 13:42] VITALS: PULSE 71; RESP 19; O2SAT 97
[2025-09-23] MEDS ORDERED: ANAS1TAB7 PO (15:42)
[2025-09-23] MEDS ORDERED: PANT1INJ3 IV (15:42)
[2025-09-23 17:00] VITALS: BP 152/77; PULSE 63; RESP 18; TEMP 98.5; O2SAT 96
[2025-09-23 20:00] VITALS: PULSE 76; RESP 18; O2SAT 95
[2025-09-23 21:00] VITALS: BP 114/87; PULSE 76; RESP 18; TEMP 98.1; O2SAT 95
[2025-09-23] MEDS: ATORVASTATIN 20 MG TAB PO SCH (21:58)
[2025-09-24 01:00] VITALS: BP 131/69; PULSE 66; RESP 18; TEMP 98.3; O2SAT 91
[2025-09-24 05:00] VITALS: BP 141/77; PULSE 58; RESP 18; TEMP 97.6; O2SAT 93
[2025-09-24 08:00] VITALS: PULSE 57; RESP 16; O2SAT 92
[2025-09-24 09:03] VITALS: BP 189/88; PULSE 66; RESP 16; TEMP 98.1; O2SAT 97
[2025-09-24] MEDS ORDERED: HYDR-4902 PO (10:05)
--- NOTE | 2025-09-24 10:10 | DVHDS2 ---
Discharge Summary Date of Admission Sep 22, 2025 at 22:01 Date of Discharge: Sep 24, 2025 Labs/Diagnostic Data: Laboratory Results Test 09/23/25 05:14 09/22/25 22:29 White Blood Count 7.6 10^3/uL (4.4-10.8) Red Blood Count 3.36 10^6/uL (4.0-5.20) Hemoglobin 11.3 g/dL (12.2-16.2) Hematocrit 32.5 % (36.0-46.0) Mean Corpuscular Volume 96.6 fL (80.0-100.0) Mean Corpuscular Hemoglobin 33.6 pg (28.0-32.0) Mean Corpuscular Hemoglobin Concent 34.8 g/dL (32.0-36.0) Red Cell Distribution Width 13.7 % (11.8-14.3) Platelet Count 179 10^3/uL (140-450) Mean Platelet Volume 8.9 fL (6.9-10.8) Neutrophils (%) (Auto) 79.0 % (37.0-80.0) Lymphocytes (%) (Auto) 9.7 % (10.0-50.0) Monocytes (%) (Auto) 10.6 % (0.0-12.0) Eosinophils (%) (Auto) 0.3 % (0.0-7.0) Basophils (%) (Auto) 0.4 % (0.0-2.0) Neutrophils # (Auto) 6.0 10 ^3/uL (1.6-8.6) Lymphocytes # (Auto) 0.7 10 ^3/uL (0.4-5.4) Monocytes # (Auto) 0.8 10 ^3/uL (0-1.3) Eosinophils # (Auto) 0 10 ^3/uL (0-0.8) Basophils # (Auto) 0 10 ^3/uL (0-0.2) Nucleated Red Blood Cells 0.1 % Sodium Level 140 mmol/L (136-145) Potassium Level 4.5 mmol/L (3.5-5.1) Chloride Level 106 mmol/L (98-107) Carbon Dioxide Level 25 mmol/L (20-31) Anion Gap 9 (5-15) Blood Urea Nitrogen 30 mg/dL (9-23) Creatinine 1.36 mg/dL (0.550-1.02) Glomerular Filtration Rate Calc 39 mL/min (>90) BUN/Creatinine Ratio 22.1 (10.0-20.0) Serum Glucose 117 mg/dL (74-106) Calcium Level 10.2 mg/dL (8.7-10.4) Prothrombin Time 10.4 sec (9.3-11.8) Prothrombin Time INR 0.98 (0.9-1.15) Activated Partial Thromboplast Time 27.3 SEC (24.5-34.5) Other Laboratory Tests 09/23/25 05:14 Brief Hx & Hospital Course: Final diagnoses: Right arm humerus fracture CKD, stable HTN Mixed hyperlipidemia She fell after she slipped she thinks because she stepped on an olive under an olive tree Ortho saw her, no surgery is needed She can go home F/U with Ortho as outpatient [place] prn Right arm sling Condition at Discharge: Stable Final Diagnosis/Problems List Right humerus fracture Discharge Disposition: Home SNF Discharge Will this Physician continue t: No Discharge Instruct/Medications Diet: Cardiac 2g Na,low cholest Activity: No Restrictions, As Tolerated Follow Up/Referral: [facility]o referral per [facility] Medications: Tylenol OTC prn [place] prn Right arm sling Scheduled Anastrozole (Anastrozole), 1 TAB PO DAILY, (Reported) Atenolol (Atenolol), 1 TAB PO DAILY, (Reported) Beclomethasone Dipropionate (Qvar Redihaler), 2 PUFF PO BID, (Reported) Levofloxacin Hemihydrate (Levofloxacin), 1 TAB PO DAILY Lisinopril (Lisinopril), 1 TAB PO DAILY, (Reported) Simvastatin (Simvastatin), 1 TAB PO HS, (Reported) Scheduled PRN Hydrocodone-Acetaminophen (Hydrocodone Bitartrate/AC 5-325 mg), 1 TAB PO Q6HP PRN Miscellaneous Medications Pantoprazole Sodium (Pantoprazole Sodium), 40 MG IV, (Reported) Discharge Statement: "Patient was advised to return to the ER or call 911 if any headaches, dizziness, shortness of breath, chest pain, abdominal pain, bleeding, fevers, or worsening of medical condition. Patient was counseled about treatment plan, medications, possible side effects, patientverbalized understanding. All questions were answered to the best of my ability. This discharge took greater then 30 minutes in planning, reviewing documentation, counseling the patient, and discussing with other team members." ASSESSMENT ASSESSMENT Assessment Right humerus fracture Date of Service: Sep 24, 2025 Billing Provider: MARISELA GODINEZ MD Common Visit Codes: NOT BILLABLE MARISELA GODINEZ MD Sep 24, 2025 10:10
[2025-09-24 12:35] VITALS: BP 135/74; PULSE 57; RESP 16; TEMP 97.7; O2SAT 92
[2025-09-24 12:45] VITALS: BP 135/74; PULSE 66; RESP 16; TEMP 98.1; O2SAT 97
== END 2025-09-24 14:45 | disposition home or self-care (01) | DRG 563 ==
LOC: ER 19:13 → EDBD 19:13 → OVERFLOW 22:01 → EAST 09-23 12:52
PROVIDERS: ADMIT Internal Medicine Geriatric Medicine; ATTEND Internal Medicine Geriatric Medicine
DX: S42.251A Displaced fracture of greater tuberosity of right humerus, initial encounter for closed fracture (principal); E78.2 Mixed hyperlipidemia; N18.9 Chronic kidney disease, unspecified; I12.9 Hypertensive chronic kidney disease with stage 1 through stage 4 chronic kidney disease, or unspecified chronic kidney disease; I25.10 Atherosclerotic heart disease of native coronary artery without angina pectoris; W01.0XXA Fall on same level from slipping, tripping and stumbling without subsequent striking against object, initial encounter; R23.3 Spontaneous ecchymoses; Y93.89 Activity, other specified; Z88.0 Allergy status to penicillin; Y92.89 Other specified places as the place of occurrence of the external cause; Y99.8 Other external cause status
CPT/HCPCS: 36415; 73030; 80048; 85025; 85610; 85730; 97163; G0378

== ENCOUNTER 2025-09-25 01:45 | Emergency (ER) | payer OTHER ==
[~2025-09-25] VITALS: Ht 157.5 cm; Wt 56.0 kg
[~2025-09-25 01:45] MED LIST changes: -ACETAMINOPHEN 325 MG TAB PO PRN; +ANAS1TAB7 PO; +HYDR-4902 PO; +PANT1INJ3 IV
--- NOTE | 2025-09-25 02:14 | ED.PDOC ---
History of Present Illness HPI Comments 84-year-old female who presents to the ED with a chief complaint of RT shoulder pain onset 2 hours ago. Patient was discharged from [facility] on 09/24/2025 with a diagnosis of Right arm humerus fracture, given a prescription for Gregory, has not taken medication. Patient was trying to get out of bed, slid onto the ground, noticed pain has worsen. Denies head injury, LOC, fever, chills, nausea, vomiting, diarrhea, shortness of breath, numbness/tingling, headache, dizziness. No other symptoms or modifying factors present at this time. PHYSICAL EXAM: General: Awake, alert and oriented. No acute distress. Skin: Skin in warm, dry and intact without rashes or lesions. HEENT: The head is normocephalic and atraumatic. Conjunctivae are clear without exudates or hemorrhage. Sclera is non-icteric. Neck: Normal range of motion. No JVD. Cardiac: Regular rate Respiratory: No signs of respiratory distress. No Stridor. Extremities: upper RT humerus tenderness, normal strength on RT hand. RT face and neck bruising. Neurological: The patient is awake, alert and oriented to person, place, and time with normal speech. Speech is clear. There is no facial asymmetry. Psychiatric: Appropriate mood and affect. Good judgement and insight. REVIEW OF SYSTEMS: General: No fever, no chills, or fatigue HEENT: No sore throat, no earache, no congestion, no neck pain. Cardiac: No chest pain. No palpitations. Lungs: No shortness of breath, no cough. GI: No nausea, no vomiting, no diarrhea, no constipation, no abdominal pain : No dysuria, frequency, or urgency. No hematuria. Musculoskeletal: RT shoulder pain. no extremity edema. Skin: No rash, no itching. Neuro: No headache, no dizziness, no weakness (And as sated in HPI) PHYSICAL EXAM: General: Awake, alert and oriented. No acute distress. Skin: Skin in warm, dry and intact. Appropriate color for ethnicity. HEENT: The head is normocephalic and atraumatic. Conjunctivae are clear without exudates or hemorrhage. Sclera is non-icteric. Eyelids are normal in appearance without swelling or lesions. Oral mucosa is pink and moist Neck: The neck is supple with normal range of motion. No JVD. Cardiac: Heart rate and rhythm are normal. No murmurs, gallops, or rubs are auscultated. Respiratory: No signs of respiratory distress. Lung sounds are clear in all lobes bilaterally without rales, rhonchi, or wheezes. Abdominal: Abdomen is soft, non-tender without distention, guarding or rigidity. Bowel sounds are present and normoactive in all four quadrants. Extremities: Lower extremities without edema. Neurological: The patient is awake, alert and oriented to person, place, and time with normal speech. Speech is clear. There is no facial asymmetry. Psychiatric: Appropriate mood and affect. Good judgement and insight. REVIEW OF SYSTEMS: General: No fever, no chills, or fatigue HEENT: No sore throat, no earache, no congestion, no neck pain. Cardiac: No chest pain. No palpitations. Lungs: No shortness of breath, no cough. GI: No nausea, no vomiting, no diarrhea, no constipation, no abdominal pain : No dysuria, frequency, or urgency. No hematuria. Musculoskeletal: No joint pain , no joint swelling, no extremity edema. Skin: No rash, no itching. Neuro: No headache, no dizziness, no weakness (And as sated in HPI) Chief Complaint: Upper Extremity Time Seen by MD: 02:10 Reviewed Notes: Medications, Allergies Allergies: Coded Allergies: Penicillins (Verified Allergy, Unknown, 03/11/25) Home Meds Active Scripts Hydrocodone-Acetaminophen (Hydrocodone Bitartrate/AC 5-325 mg) 1 Tab Tab, 1 TAB PO Q6HP PRN, #20 TAB Prov:MARISELA GODINEZ MD 09/24/25 Levofloxacin Hemihydrate (LEVOFLOXACIN) 500 Mg Tab, 1 TAB PO DAILY, #10 TAB Prov:MARISELA GODINEZ MD 03/12/25 Reported Medications Anastrozole (Anastrozole) 1 Mg Tab, 1 TAB PO DAILY, #30 TAB 5 Refills 09/23/25 Pantoprazole Sodium (PANTOPRAZOLE SODIUM) 40 Mg Inj, 40 MG IV, INJ 09/23/25 Atenolol (Atenolol) 25 Mg Tab, 1 TAB PO DAILY 03/11/25 Simvastatin (Simvastatin) 20 Mg Tab, 1 TAB PO HS 03/11/25 Beclomethasone Dipropionate (Qvar Redihaler) 80 Mcg/Act Aer, 2 PUFF PO BID 03/11/25 Lisinopril (Lisinopril) 10 Mg Tab, 1 TAB PO DAILY 03/11/25 Information Source: Patient, Significant Other Mode of Arrival: Wheelchair Severity: Moderate Timing: Hours Duration: Since onset Prehospital treatment: None Past Medical History PAST MEDICAL HISTORY: CAD Surgical History: Unknown, Denies all surgeries GRINDER NEEDLE TIP History: Denies all GRINDER NEEDLE TIP Hx Family History Family History: Reviewed,noncontributory to illness Social History Smoker: Non-Smoker Alcohol: Denies ETOH Use Drugs: Denies Drug Use Lives In: Assisted Care Was a procedure done? Was a procedure done?: No Differential Dx Considerations may include: Change in fracture alignment, hematoma, neurovascular damage, other X-Ray, Labs, Meds, VS Vital Signs Date Time Temp Pulse Resp B/P (MAP) Pulse Ox O2 Delivery O2 Flow Rate FiO2 09/25/25 03:12 79 16 98 Room Air* 0 21 09/25/25 03:08 98.4 79 16 144/83 (103) 98 98.4 09/25/25 01:47 98.0 77 16 155/61 96 98.0 Current Medications Medications (Trade) Dose Ordered Sig/Mehrdad Route Start Time Stop Time Status Last Admin Acetaminophen/ Hydrocodone Bitart (Gregory 5/325MG Tab) 1 tab ONCE ONCE PO 09/25/25 02:15 09/25/25 02:16 DC 09/25/25 03:22 Time of 1ST Reevaluation: 02:40 Reevaluation 1ST: Unchanged Patient Education/Counseling: Diagnosis, Treatment, Need For Follow Up Family Education/Counseling: Diagnosis, Treatment, Need For Follow Up SEPSIS Sepsis Screen Date sepsis recognized/suspect: Sep 25, 2025 Time Sepsis recognized/suspect: 0151 Recent Procedure: No On Antibiotic Therapy: No Respiratory Rate >20: No Heart Rate >90: No Temp<36 C (96.8 F) or >38.3 C: No SBP <90 or MAP <65 mmHG: No New Acute Mental Status Change: No Is the patient on CPAP, BIPAP,: No Physician Orders R Humerus Xray (09/25/25 02:10) Vital Signs Date Time Temp Pulse Resp B/P (MAP) Pulse Ox O2 Delivery O2 Flow Rate FiO2 09/25/25 03:12 79 16 98 Room Air* 0 21 09/25/25 03:08 98.4 79 16 144/83 (103) 98 98.4 09/25/25 01:47 98.0 77 16 155/61 96 98.0 Medications Medications Dose Ordered Sig/Mehrdad Route Start Time Stop Time Status Last Admin Dose Admin Acetaminophen/ Hydrocodone Bitart 1 tab ONCE ONCE PO 09/25/25 02:15 09/25/25 02:16 DC 09/25/25 03:22 Departure 1 Departure Time of Disposition: 04:17 Impression: Primary Impression: Right humeral fracture Disposition: HOME / SELF CARE / HOMELESS Condition: Stable Additional Instructions: ED DISCHARGE INSTRUCTIONS Instructions: Please read all instructions provided in this packet carefully. Although you have been discharged from the Emergency Department, this does not mean that you have a "clean bill of health". No definitive diagnosis for your symptoms has been made today. It is possible that you are in the process of developing a serious illness. This is why you must return to the ED without fail if any new or worsening symptoms (especially if your symptoms include chest pain, trouble breathing, abdominal pain, fever, headache, confusion, trouble seeing, or trouble walking) It is also very important that you see a primary care provider (PCP) within the next 3-5 days to follow up. Follow up as previously recommended for right arm fracture. Take Gregory as needed for pain. If you are unable to get an appointment, return to the ED for re-evaluation. Comments MDM: 84-year-old female with arm pain after sliding out of bed. Recent arm fracture, patient's arm is still in sling. Patient was evaluated by orthopedics who recommended no surgery. Imaging shows no change from previous. Patient is felt stable for discharge home to follow up with the PCP and orth opedics Extensive evaluation was performed in attempt to identify or rule out: (See differential diagnosis section) The following tests were ordered, and results were reviewed by me and discussed with patient: (See diagnostic results section) The following test were independently interpreted by me: Humerus x-ray-no change from 09/27/25 I reviewed the following notes from the pt's past medical encounters: Recent encounter for humerus fracture Additional information was gathered from interviewing the following independent historians: Patient's significant other at bedside Decision regarding hospitalization or escalation of hospital level of care: Ris ks and benefits of admission for further treatment of patient's condition was considered however due to patient's stable condition patient will be discharged to follow up closely or return to care for worsening of condition or inability to follow up. Critical Care Note Critical Care Time?: No Stability Stability form required: No Heart Score Heart Score: Heart Score Response (Comments) Value History N/A 0 EKG N/A 0 Age N/A 0 Risk Factors N/A 0 Troponin N/A 0 Total 0 I personally scribed for JIE BEYER MD ([email or web address]) on 09/25/25 at 02:14. Electronically submitted by Dali Yanes ([email or web address]). I personally scribed for JIE BEYER MD ([email or web address]) on 09/25/25 at 02:24. Electronically submitted by Dali Yanes ([email or web address]). JIE BEYER MD Sep 25, 2025 02:14
[2025-09-25 03:08] VITALS: BP 144/83; TEMP 98.4
[2025-09-25 03:12] VITALS: PULSE 79; RESP 16; O2SAT 98
[2025-09-25] MEDS: HYDROcodone-ACET 5/325MG TAB PO ONE (03:22)
--- NOTE | 2025-09-25 04:18 | DVH ---
CLINICAL HISTORY: Fall on R shoulder, previous fracture TECHNIQUE: Or views of the right humerus were obtained. COMPARISON: XY R SHOULDER 2+ VIEW XRAY on DOS: 09/22/25 FINDINGS: There is a comminuted greater tuberosity humerus fracture. Humeral head aligns with the glenoid. No significant soft tissue abnormality is seen. IMPRESSION: 1. Comminuted greater tuberosity humerus fracture similar to prior study.
== END 2025-09-25 04:24 | disposition home or self-care (01) ==
LOC: ER 01:45
DX: S42.301A Unspecified fracture of shaft of humerus, right arm, initial encounter for closed fracture (principal); I25.10 Atherosclerotic heart disease of native coronary artery without angina pectoris; Z79.899 Other long term (current) drug therapy; Z88.0 Allergy status to penicillin; Z79.51 Long term (current) use of inhaled steroids; W18.39XA Other fall on same level, initial encounter; Y93.89 Activity, other specified; Y92.89 Other specified places as the place of occurrence of the external cause; Y99.8 Other external cause status
CPT/HCPCS: 73060